=== PATIENT | female | born 1980 | race Caucasian/White ===

== ENCOUNTER 2016-07-01 14:31 | Outpatient (CLI) | payer BC ==
[2012-12-08 15:33] VITALS: BP 119/67
[2016-07-01 14:45] LABS: BASOPHILS % 0.4 (0.0-1.5); EOSINOPHILS % 1.7 % (0.0-6.8); MEAN CORPUSCULAR HEMOGLOBIN 31.1 pg (28.0-34.0); MONOCYTES # 0.3 # k/uL (0.0-0.9); MONOCYTES % 3.9 % (0.0-11.0); NEUTROPHILS # 5.3 # k/uL (1.4-7.7)
== END 2016-07-01 14:32 ==
LOC: LAB 14:31
PROVIDERS: ATTEND Family Medicine
DX: R22.30 Localized swelling, mass and lump, unspecified upper limb (principal)
CPT/HCPCS: 36415; 85025

== ENCOUNTER 2016-12-01 16:42 | Outpatient (CLI) | payer BC ==
[2012-12-08 15:33] VITALS: BP 119/67
[2016-12-01 17:22] LABS: eGFR (African) > 60; eGFR (Non-African) > 60
== END 2016-12-01 16:44 ==
LOC: LAB 16:42
PROVIDERS: ATTEND Family Medicine
DX: R11.0 Nausea (principal)
CPT/HCPCS: 36415; 80048

== ENCOUNTER 2017-01-12 16:35 | Outpatient (CLI) | payer BC ==
[2012-12-08 15:33] VITALS: BP 119/67
== END 2017-01-12 16:36 ==
LOC: LABRHC 16:35
PROVIDERS: ATTEND Physician Assistant
DX: R10.9 Unspecified abdominal pain (principal)
CPT/HCPCS: 87086

== ENCOUNTER 2017-01-15 07:51 | Outpatient (CLI) | payer BC ==
[2012-12-08 15:33] VITALS: BP 119/67
--- NOTE | 2017-01-15 14:43 | Diagnostic Imaging Report ---
ARMAND ESTES [facility] [id number] [facility] [address] [id number] Report Submission Date: Jan 15, 2017 9:28:14 AM CDT Patient Study Name: CHANEL FRANCOIS Date: Jan 15, 2017 8:10:47 AM CDT Modality Type: US Gender: F Description: ABDOMEN COMPLETE : 84 Institution: [facility] Physician: ARMAND ESTES Examination: Ultrasound abdomen History: Abdominal discomfort Findings: Sonographic evaluation of the abdomen demonstrates a gallbladder without stones or sludge. Gallbladder wall is not thickened measuring 1.9 mm. Common bile duct measures 1.8 mm. No intrahepatic biliary dilation. Liver demonstrates normal homogeneous echogenicity. No mass. Normal flow on color analysis. Normal Doppler waveforms. Right kidney measures 11.9 cm in length. Left kidney measures 8.1 cm in length. Normal right cortical margins. Left cortical margin appears to be thinned. No hydronephrosis. Pancreatic region, spleen, and abdominal aorta are without gross irregularity. Impression: No gallstones or obstruction. Left kidney was difficult to visualized and appears to be atrophic when compared with the right. Correlate with any previous imaging. No other abdominal irregularity. Electronically signed on Jan 15, 2017 9:28:14 AM CDT by: Calvin SIMON
== END 2017-01-15 07:52 ==
LOC: RAD 07:51
PROVIDERS: ATTEND Physician Assistant
DX: R10.11 Right upper quadrant pain (principal); R10.31 Right lower quadrant pain; R10.9 Unspecified abdominal pain
CPT/HCPCS: 76700

== ENCOUNTER 2017-02-23 09:43 | Outpatient (CLI) | payer BC ==
[2012-12-08 15:33] VITALS: BP 119/67
== END 2017-02-23 09:44 ==
LOC: LAB 09:43
PROVIDERS: ATTEND Physician Assistant
DX: E03.9 Hypothyroidism, unspecified (principal)
CPT/HCPCS: 36415; 84439; 84443; 84481

== ENCOUNTER 2017-05-13 16:37 | Outpatient (CLI) | payer BC ==
[2012-12-08 15:33] VITALS: BP 119/67
[2017-05-13 16:55] LABS: BASOPHILS % 0.8 (0.0-1.5); EOSINOPHILS % 2.9 % (0.0-6.8); MEAN CORPUSCULAR HEMOGLOBIN 29.9 pg (28.0-34.0); MEAN CORPUSCULAR VOLUME 87.3 fl (80.0-100.0); NEUTROPHILS # 4.2 # k/uL (1.4-7.7)
[2017-05-13 17:15] LABS: eGFR (African) > 60; eGFR (Non-African) > 60
== END 2017-05-13 16:45 ==
LOC: LAB 16:37
PROVIDERS: ATTEND Family Medicine
DX: R42 Dizziness and giddiness (principal)
CPT/HCPCS: 36415; 80053; 85025

== ENCOUNTER 2018-03-22 09:55 | Outpatient (CLI) | payer BC ==
[2012-12-08 15:33] VITALS: BP 119/67
== END 2018-03-22 09:56 ==
LOC: LAB 09:55
PROVIDERS: ATTEND Family Medicine
DX: E03.9 Hypothyroidism, unspecified (principal)
CPT/HCPCS: 36415; 84443